=== PATIENT | female | born 2000 | race African-American/Black ===

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

== ENCOUNTER 2019-05-26 13:13 | Emergency (ER) | payer MEDICAID ==
[~2019-05-26] VITALS: Ht 160 cm; Wt 61.2 kg
[~2019-05-26 13:13] MED LIST changes: +DOXYCYCLINE MO100 MG ORAL
[2019-05-26 13:30] VITALS: BP 117/76
--- NOTE | 2019-05-26 13:30 | NUR ---
ED Nurse Note: pt c/o "sore throat, trouble breathing through nose, and low dose of pumps in my inhaler"
--- NOTE | 2019-05-26 13:52 | Emergency Room Report ---
History of Present Illness General Chief Complaint: Sore Throat Source: Patient Present Illness HPI 19-year-old female with past medical history here complaining of a 10 out of 10 sore throat x1 month reports that she also has been expressing a lot of cough and congestion and pressure in sinuses. Reports minor cough however denies wheezing. Denies abdominal pain, nausea vomiting, ear pain. Has not taken medication for symptom relief other than DayQuil and NyQuil. She reports the symptoms are getting worse today. Denies all other associated symptoms. Allergies: Coded Allergies: No Known Allergies (Unverified , 06/28/18) Patient History Past Medical History: see triage record Past Surgical History: unable to obtain Pertinent Family History: none Last Menstrual Period: 05/12/19 Now: No Immunizations: UTD Reviewed Nursing Documentation: PMH: Agreed; PSxH: Agreed Nursing Documentation-PMH Past Medical History: No History, Except For Hx Seizures: Yes - 2004 Review of Systems All Other Systems: negative except mentioned in HPI Physical Exam Vital Signs Date Time Temp Pulse Resp B/P (MAP) Pulse Ox O2 Delivery O2 Flow Rate FiO2 05/26/19 13:27 97.9 71 18 117/76 (90) 95 Room Air Sp02 EP Interpretation: reviewed, normal General Appearance: no apparent distress, alert, GCS 15, non-toxic Head: normocephalic, atraumatic Eyes: bilateral eye normal inspection, bilateral eye PERRL ENT: no angioedema, normal voice, TMs + canals normal, uvula midline, moist mucus membranes, tonsillar swelling, other - Bilateral maxillary sinuses tender to palpation Neck: normal inspection, full range of motion, supple, no meningismus Respiratory: chest non-tender, lungs clear, normal breath sounds, no rhonchi, no wheezing, speaking full sentences Cardiovascular #1: regular rate, rhythm, no edema, no murmur Gastrointestinal: normal bowel sounds, non tender, soft, no mass, no bruit, no guarding Rectal: deferred Genitourinary: no CVA tenderness Musculoskeletal: back normal, digits/nails normal, gait/station normal, normal range of motion, non-tender Neurologic: alert, oriented x3, responsive, motor strength/tone normal, sensory intact, speech normal Psychiatric: judgement/insight normal, memory normal, mood/affect normal, no suicidal/homicidal ideation Skin: no rash Lymphatic: normal inspection, no adenopathy Medical Decision Making PA Attestation All diagnoses and treatment plans were reviewed and discussed with my supervising physician Dr. Flores Diagnostic Impression: Primary Impression: Sinusitis ER Course 19-year-old female with past medical history here complaining of a 10 out of 10 sore throat x1 month reports that she also has been expressing a lot of cough and congestion and pressure in sinuses. Reports minor cough however denies wheezing. Denies abdominal pain, nausea vomiting, ear pain. Has not taken medication for symptom relief other than DayQuil and NyQuil. She reports the symptoms are getting worse today. Denies all other associated symptoms. Ddx considered but are not limited to: strep pharyngitis, URI, tonsillitis, peritonsillar abscess, influneza, sinusitis Vital signs: are WNL, pt. is afebrile H&PE are most consistent with: Sinusitis ORDERS: Augmentin, Flonase, guaifenesin ED INTERVENTIONS: None required at this time. DISCHARGE: At this time pt. is stable for d/c to home. Will provide printed patient care instructions, and any necessary prescriptions. Care plan and follow up instructions have been discussed with the patient prior to discharge. To follow-up with primary care provider if worsening symptoms return to emergency room Last Vital Signs Date Time Temp Pulse Resp B/P (MAP) Pulse Ox O2 Delivery O2 Flow Rate FiO2 05/26/19 13:30 97.9 71 18 117/76 95 Room Air Disposition: HOME, SELF-CARE Condition: Stable Scripts Guaifenesin* (GUAIFENESIN) 100 Mg/5 Ml Liquid 5 ML ORAL Q6H, #120 ML 0 Refills Prov: Mehdi Adamson 05/26/19 Fluticasone Propionate (Flonase Allergy Relief) 9.9 Ml Hasty.susp 2 PUFFS NS BID, #10 ML Prov: Mehdi Adamson 05/26/19 Amoxicillin/Potassium Clav 875-125* (AUGMENTIN 875-125 TABLET*) 1 Each Tablet 1 TAB ORAL TWICE A DAY for 10 Days, #20 TAB Prov: Mehdi Adamson 05/26/19 Patient Instructions: Sinusitis, Adult, [id number] Additional Instructions: Take medication as directed, follow-up with your primary care provider, if worsening symptoms return to the emergency room Mehdi Adamson May 26, 2019 13:52
[2019-05-26] MEDS ORDERED: GUAIFENESI100 MG/5 M ORAL (13:54)
[2019-05-26] MEDS ORDERED: AUGMENTIN 875-1 EAC1 ORAL (13:54)
[2019-05-26] MEDS ORDERED: FLONASE ALLERG9.9 ML NS (13:54)
[2019-05-26 14:00] VITALS: BP 126/86
--- NOTE | 2019-05-26 14:00 | NUR ---
ER DISCHARGE NOTE: Patient is cleared to be discharged per ERMD, pt is aox4, on room air, with stable vital signs. pt was given dc and prescription instructions, pt was able to verbalize understanding, pt id band remvoed. pt is able to ambulate with steady gait. pt took all belongings.
== END 2019-05-26 14:00 | disposition home or self-care (01) ==
LOC: EMR 13:24
DX: J32.9 Chronic sinusitis, unspecified (principal); G40.909 Epilepsy, unspecified, not intractable, without status epilepticus
CPT/HCPCS: 99282

== ENCOUNTER 2019-06-12 20:53 | Emergency (ER) | payer MEDICAID ==
[~2019-06-12] VITALS: Ht 160 cm; Wt 65.8 kg
[~2019-06-12 20:53] MED LIST changes: +AUGMENTIN 875-1 EAC1 ORAL; +FLONASE ALLERG9.9 ML NS; +GUAIFENESI100 MG/5 M ORAL
--- NOTE | 2019-06-12 21:27 | Emergency Room Report ---
History of Present Illness General Chief Complaint: General Complaint Source: Patient Present Illness HPI Patient is a 19-year-old female presents after increased nasal congestion for about 2 months. Patient recently been seen in the emergency department. Allergies: Coded Allergies: No Known Allergies (Unverified , 06/28/18) Patient History Last Menstrual Period: 05/07/19 Reviewed Nursing Documentation: PMH: Agreed; PSxH: Agreed Nursing Documentation-PMH Past Medical History: No Stated History Hx Seizures: Yes - 2004 Physical Exam Vital Signs Date Time Temp Pulse Resp B/P (MAP) Pulse Ox O2 Delivery O2 Flow Rate FiO2 06/12/19 21:07 98.6 91 18 117/69 (85) 99 Room Air Medical Decision Making Last Vital Signs Date Time Temp Pulse Resp B/P (MAP) Pulse Ox O2 Delivery O2 Flow Rate FiO2 06/12/19 21:07 98.6 91 18 117/69 (85) 99 Room Air Miky Barba MD Jun 12, 2019 21:27
[2019-06-12] MEDS ORDERED: ZYRTEC10 MG ORAL ×2 (22:01)
[2019-06-12 22:06] VITALS: BP 117/69
[2019-06-12 22:30] VITALS: BP 115/60
== END 2019-06-12 22:30 | disposition home or self-care (01) ==
LOC: EMR 21:30
DX: R09.81 Nasal congestion (principal); G40.909 Epilepsy, unspecified, not intractable, without status epilepticus
CPT/HCPCS: 81025; Z7502; 99282